=== PATIENT | female | born 1955 | race Caucasian/White ===

== ENCOUNTER 2022-05-20 11:32 | Emergency (ER) | payer MEDICARE ==
[~2022-05-20] VITALS: Ht 177.8 cm; Wt 99.8 kg
[~2022-05-20 11:32] MED LIST: FOLI1 PO; Humalog100 UNIT/1 SC; Lantus100 UNIT/1 SC; Multivitamin1 EAC1 PO; OMEPRAZOLE MAGN20 MG PO; THIA100 PO
[2022-05-20] MEDS ORDERED: Prinivil10 MG PO (11:38)
[2022-05-20] MEDS ORDERED: ROSUVASTATIN CA20 MG PO (11:38)
[2022-05-20] MEDS ORDERED: EUTHYROX150 MC1 PO (11:38)
[2022-05-20] MEDS ORDERED: Percocet 5-3251 EACH PO (17:31)
== END 2022-05-20 18:00 | disposition home or self-care (01) ==
LOC: ER 11:32
DX: S42.211A Unspecified displaced fracture of surgical neck of right humerus, initial encounter for closed fracture (principal); S42.251A Displaced fracture of greater tuberosity of right humerus, initial encounter for closed fracture; W07.XXXA Fall from chair, initial encounter; Z79.899 Other long term (current) drug therapy; Z79.4 Long term (current) use of insulin; Z87.891 Personal history of nicotine dependence
CPT/HCPCS: 73030; 73060; 73200; A9270; J1885; J2270